=== PATIENT | male | born 1960 | race African-American/Black ===

== ENCOUNTER → 2020-05-12 | Outpatient (CLI) | payer OTHER ==
[~2020-05-12] MED LIST: ADAL40PE SQ; AMLO5TAB10 PO; ASPI325T11 PO; HYDR-2763 PO; PROM25TA10 PO
--- NOTE | 2020-05-12 14:42 | KCIC ---
EXAMINATION: MRI left knee without contrast INDICATIONS: Left knee pain. Progressive left medial knee pain from repetitive bending. Chronic.. TECHNIQUE: Multiplanar multisequence MRI of the left knee radiograph 10/08/2020 knee was obtained without contrast. COMPARISON: None. FINDINGS: MENISCI: There is a complex radial oblique tear at the posterior horn medial meniscus extending to the posterior horn-root junction with a radial and vertical component resulting in a nondisplaced flap. There is a peripheral horizontal tear along the undersurface of the body-posterior horn junction medial meniscus with some displaced meniscal tissue extending into the adjacent inferior recess (image 11, series 9). There is 2.5 mm extrusion of the medial meniscus body. The lateral meniscus is intact. LIGAMENTS: The anterior and posterior cruciate ligaments are intact. The medial collateral ligament and lateral collateral ligament complex including popliteus tendon and iliotibial band are intact. EXTENSOR MECHANISM: Mild thickening of the proximal patellar tendon consistent with tendinopathy. Quadriceps tendon is intact. Retinacula are intact. Mild edema in the suprapatellar fat pad, nonspecific. BONES AND CARTILAGE: Marrow signal is normal. No acute fracture. There is scattered superficial partial-thickness cartilage loss in the weightbearing medial compartment. Probable diffuse cartilage thinning in the lateral compartment without discrete defect. Patellofemoral cartilage appears maintained. OTHER: Moderate joint effusion. Mild subcutaneous edema along the medial aspect of the knee is reactive to meniscal tear. Muscles are normal. No Dutton cyst. IMPRESSION: 1. Radial oblique tear of the posterior horn-root junction medial meniscus with a nondisplaced flap, and peripheral horizontal undersurface tear at the body-posterior horn junction medial meniscus. 2. Mild medial and lateral compartment cartilage loss. 3. Moderate joint effusion. 4. Thickening of the proximal patellar tendon suspicious for tendinopathy. Electronically signed by: Maria C Duke MD (05/12/2020 2:39 PM) [id number]
== END | disposition home or self-care (01) ==
LOC: KCIC MRI 12:59
PROVIDERS: ATTEND Orthopaedic Surgery
DX: S83.242A Other tear of medial meniscus, current injury, left knee, initial encounter (principal); M79.4 Hypertrophy of (infrapatellar) fat pad; M25.462 Effusion, left knee; X58.XXXA Exposure to other specified factors, initial encounter; Y93.89 Activity, other specified; Y92.89 Other specified places as the place of occurrence of the external cause; Y99.8 Other external cause status
CPT/HCPCS: 73721

== ENCOUNTER → 2020-06-28 | Outpatient (CLI) | payer OTHER | END | disposition home or self-care (01) | LOC: LAB 13:48 | PROVIDERS: ATTEND Orthopaedic Surgery | DX: Z01.818 Encounter for other preprocedural examination (principal); Z11.59 Encounter for screening for other viral diseases; Z96.652 Presence of left artificial knee joint | CPT/HCPCS: U0003-CS ==

== ENCOUNTER 2020-07-02 07:52 | Day surgery (SDC) | payer OTHER ==
[~2020-07-02] VITALS: Ht 177.8 cm; Wt 130.2 kg
[~2020-07-02 07:52] MED LIST changes: -ADAL40PE SQ; -AMLO5TAB10 PO; -ASPI325T11 PO; +BUPIVACAINE MPF 0.25% 30 ML VIAL. ONE; +CLINDAMYCIN 900MG PREMIX 50 ML IV PRN; +EPINEPHrine VIAL 30 MG/30 ML VIAL ONE; -HYDR-2763 PO; +HYDROmorphone 2 MG/ML VIAL IV PRN; +IV RINGERS,LACTATED 1000ML 1,000 ML IV SCH; +LIDOCAINE 1% PF 2 ML VIAL. ID PRN; +LIDOCAINE 2% PF 5 ML VIAL. ONE; +MORPHINE SULFATE 2 MG/ML VIAL. IV PRN; +ONDANSETRON PF 4 MG/2 ML VIAL. IV PRN; +PROCHLORPERAZINE 10 MG/2 ML VIAL. IV PRN; -PROM25TA10 PO; +PROPOFOL 10 MG/ML (20ML) VIAL. IV ONE; +fentaNYL PF VIAL 100 MCG/2 ML VIAL IV PRN; +fentaNYL PF VIAL 250 MCG/5 ML VIAL ONE
[2020-07-02] MEDS ORDERED: CLINDAMYCIN 900MG PREMIX 50 ML IV PRN (08:30)
[2020-07-02] MEDS ORDERED: ADAL40PE SQ (08:32)
[2020-07-02] MEDS ORDERED: AMLO5TAB10 PO (08:32)
--- NOTE | 2020-07-02 08:50 | PDOC1 ---
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 History of right knee arthroscopy. He describes medial left knee pain over the past 2-3 months with associated popping feeling. He has more difficulty going up stairs. He is originally from [place] and has seen Dr. Wang at [facility] where he had his knee aspirated. His MRI shows a large medial meniscus tear of the left knee. He is here today for elective knee replacement surgery. Past Medical History Cardiovascular: HTN (Your exam) Rheumatologic: Rheumatoid arthritis Past Surgical History Past Surgical History right knee arthroscopy bone spur removal Family History Family History: No Significant Social History Smoke: Quit ALCOHOL: occassional Current Medications Current Medications Current Medications Clindamycin Phosphate 50 ml @ 100 mls/hr 1X PREOP PRN IV PRIOR TO PROCEDURE; Start 07/02/20 at 06:00; Stop 07/02/20 at 18:00; Status Cancel Ondansetron HCl (Zofran) 4 mg PRN Q6HRS PRN IV NAUSEA/VOMITING; Start 07/02/20 at 07:00; Stop 07/03/20 at 06:59 Fentanyl Citrate (Fentanyl 2ml Vial) 25 mcg PRN Q5MIN PRN IV MILD PAIN 1-3; Start 07/02/20 at 07:00; Stop 07/03/20 at 06:59 Fentanyl Citrate (Fentanyl 2ml Vial) 50 mcg PRN Q5MIN PRN IV MODERATE TO SEVERE PAIN; Start 07/02/20 at 07:00; Stop 07/03/20 at 06:59 Morphine Sulfate (Morphine Sulfate) 1 mg PRN Q10MIN PRN IV SEVERE PAIN 7-10; Start 07/02/20 at 07:00; Stop 07/03/20 at 06:59 Ringer's Solution 1,000 ml @ 30 mls/hr Q24H IV Last administered on 07/02/20at 08:38; Start 07/02/20 at 07:00; Stop 07/02/20 at 18:59 Lidocaine HCl (Xylocaine-Mpf 1% 2ml Vial) 2 ml PRN 1X PRN ID PRIOR TO IV START; Start 07/02/20 at 07:00; Stop 07/03/20 at 06:59 Hydromorphone HCl (Dilaudid) 0.5 mg PRN Q10MIN PRN IV SEV PAIN, Second choice; Start 07/02/20 at 07:00; Stop 07/03/20 at 06:59 Prochlorperazine Edisylate (Compazine) 5 mg PACU PRN PRN IV NAUSEA, MRX1; Start 07/02/20 at 07:00; Stop 07/03/20 at 06:59 Epinephrine HCl (Adrenalin) 30 mg STK-MED ONCE .ROUTE ; Start 07/02/20 at 07:12; Stop 07/02/20 at 07:12; Status DC Bupivacaine HCl (Sensorcaine Mpf 0.25%) 30 ml STK-MED ONCE .ROUTE ; Start 07/02/20 at 07:12; Stop 07/02/20 at 07:12; Status DC Bupivacaine HCl (Sensorcaine Mpf 0.25%) 30 ml STK-MED ONCE .ROUTE ; Start 07/02/20 at 07:12; Stop 07/02/20 at 07:13; Status DC Propofol (Diprivan) 200 mg STK-MED ONCE IV ; Start 07/02/20 at 07:50; Stop 07/02/20 at 07:50; Status DC Lidocaine HCl (Lidocaine Pf 2% Vial) 5 ml STK-MED ONCE .ROUTE ; Start 07/02/20 at 07:50; Stop 07/02/20 at 07:50; Status DC Fentanyl Citrate (Fentanyl 5ml Vial) 250 mcg STK-MED ONCE .ROUTE ; Start 07/02/20 at 07:50; Stop 07/02/20 at 07:50; Status DC Clindamycin Phosphate 50 ml @ 100 mls/hr 1X PREOP PRN IV PRIOR TO PROCEDURE; Start 07/02/20 at 08:30; Stop 07/02/20 at 14:29 Active Scripts Active Reported Humira (Adalimumab) 40 Mg/0.8 Ml Pen.ij.kit 1 Syr SQ Q2WKS Amlodipine Besylate 5 Mg Tablet 5 Mg PO DAILY Allergies Allergies: Coded Allergies: Penicillins (Verified Allergy, Intermediate, 07/02/20) ibuprofen (Verified Allergy, Unknown, 07/02/20) ROS Review of System OPHTHALMOLOGY: Blurred vision none. Double vision denies. Change in vision none. ENT: Hearing loss none. Change in voice denies. Rhinorrhea none. CARDIOLOGY: Palpitations none. Shortness of breath denies. Chest pain denies. CONSTITUTIONAL: Fever denies. Chills denies. Weight gain denies. Weakness none. weight loss denies. Fatigue none. GASTROENTEROLOGY: Diarrhea denies. Vomiting none. Dysphagia none. UROLOGY: Voiding normally yes. Hematuria none. MUSCULOSKELETAL: Chronic back or neck pain denies. Swelling of the feet, hands, ankles and /or legs denies. Joint pain reports. Tingling/numbness no. DERMATOLOGY: Rash denies. Lumps none. NEUROLOGY: Dizziness/lightheadedness denies. Double vision, temporary blindness denies. Tingling/numbness none. PSYCHOLOGY: Change in mood or personality denies. Memory loss none. ENDOCRINOLOGY: Obesity denies. Fatigue none. Weight loss none. HEMATOLOGY/LYMPH: Hepatitis denies. Enlarged lymph nodes denies. Physical Exam General: Alert, Cooperative HEENT: Atraumatic Lungs: Normal air movement Heart: RRR Abdomen: Soft Extremities: Other (The LEFT knee shows normal alignment, no masses and small- moderate effusion. There is tenderness at the medial joint line and a positive medial Enzo's test. The lateral joint line shows no tenderness. Range of motion is 0-100 degrees. There is trace patellofemoral crepitus. Enzo's test is positive. There is medial joint line pain with deep flexion and especially with rotation of the tibia. The knee is stable to varus and valgus stress without subluxation or laxity. The ACL feels intact on Megan testing. Muscle strength is normal (5/5) for quadriceps and hamstrings, and muscle tone is normal. The skin is normal with no scars, rashes, lesions or ulcers. Light touch sensation is intact. No edema and no varicosities. Dorsalis pedis pulse is intact and capillary refill is normal) Skin: No breakdown, No significant lesion Neuro: Normal speech, Normal tone, Sensation intact Vitals Vitals Vital Signs Date Time Temp Pulse Resp B/P (MAP) Pulse Ox O2 Delivery O2 Flow Rate FiO2 07/02/20 08:35 97.9 75 20 96 97.9 07/02/20 08:18 160/101 Room Air Images Images [facility] [address] [place] [address] IMAGING REPORT Signed PATIENT: NATHANIEL MIRANDA ACCOUNT: [id number] : 04/18/1964 LOCATION: [facility] AGE: 56 SEX: M EXAM STATUS: REG CLI ORD. PHYSICIAN: SHARAD JUNE MD REASON: left knee pain, no known injury PROCEDURE: KNEE STANDING BILAT AP Examination: 1. Bilateral knees AP view. 2. Left knee sunrise and lateral views INDICATION: Left knee pain. FINDINGS: The AP standing bilateral views of the knees show mild right knee joint space narrowing and osteophytic spurring. The left knee on this examination is unremarkable. The lateral and sunrise views of the left knee are unremarkable. IMPRESSION: Mild medial right knee degenerative change. Otherwise negative studies with no acute findings in the left knee to explain left knee pain on x-ray. Electronically signed by: Arden Seay MD (04/29/2020 3:51 PM) [id number] DICTATED and SIGNED BY: ARDEN SEAY MD DATE: 04/29/20 1551 [facility] [id number] [place] [id number] IMAGING REPORT Signed PATIENT: NATHANIEL MIRANDA ACCOUNT: [id number] : 1960 LOCATION: [facility] AGE: 60 SEX: M EXAM STATUS: REG CLI ORD. PHYSICIAN: SHARAD JUNE MD REASON: LEFT KNEE PAIN PROCEDURE: LOWER EXT JOINT WO LT EXAMINATION: MRI left knee without contrast INDICATIONS: Left knee pain. Progressive left medial knee pain from repetitive bending. Chronic.. TECHNIQUE: Multiplanar multisequence MRI of the left knee radiograph 10/08/2020 knee was obtained without contrast. COMPARISON: None. FINDINGS: MENISCI: There is a complex radial oblique tear at the posterior horn medial meniscus extending to the posterior horn-root junction with a radial and vertical component resulting in a nondisplaced flap. There is a peripheral horizontal tear along the undersurface of the body-posterior horn junction medial meniscus with some displaced meniscal tissue extending into the adjacent inferior recess (image 11, series 9). There is 2.5 mm extrusion of the medial meniscus body. The lateral meniscus is intact. LIGAMENTS: The anterior and posterior cruciate ligaments are intact. The medial collateral ligament and lateral collateral ligament complex including popliteus tendon and iliotibial band are intact. EXTENSOR MECHANISM: Mild thickening of the proximal patellar tendon consistent with tendinopathy. Quadriceps tendon is intact. Retinacula are intact. Mild edema in the suprapatellar fat pad, nonspecific. BONES AND CARTILAGE: Marrow signal is normal. No acute fracture. There is scattered superficial partial-thickness cartilage loss in the weightbearing medial compartment. Probable diffuse cartilage thinning in the lateral compartment without discrete defect. Patellofemoral cartilage appears maintained. OTHER: Moderate joint effusion. Mild subcutaneous edema along the medial aspect of the knee is reactive to meniscal tear. Muscles are normal. No Dutton cyst. IMPRESSION: 1. Radial oblique tear of the posterior horn-root junction medial meniscus with a nondisplaced flap, and peripheral horizontal undersurface tear at the body-posterior horn junction medial meniscus. 2. Mild medial and lateral compartment cartilage loss. 3. Moderate joint effusion. 4. Thickening of the proximal patellar tendon suspicious for tendinopathy. Electronically signed by: Maria C Duke MD (05/12/2020 2:39 PM) [id number] DICTATED and SIGNED BY: MARIA C DUKE MD DATE: 05/12/20 1439 VTE Prophylaxis Ordered VTE Prophylaxis Devices: Yes VTE Pharmacological Prophylaxi: Yes Assessment/Plan Assessment/Plan His MRI shows a meniscus tear of his left knee, correlated with his described symptoms and positive Enzo's test. We reviewed the imaging results together and discussed the natural history of the condition as well as a variety of treatment options, nonoperative vs operative. At this point I recommended surgery via knee arthroscopy and meniscectomy. We discussed the potential risks of arthroscopic surgery, including risks of bleeding, infection, progressive arthritis, blood clots, or other potential surgical or anesthetic complications. We also discussed postoperative treatment and expectations including DVT prophylaxis. All of his questions were answered and he desires to proceed with surgery. He is here today for elective left knee arthroscopy and meniscectomy. Justicifation of Admission Dx: Justifications for Admission: Justification of Admission Dx: N/A SHARAD JUNE MD Jul 02, 2020 08:50
[2020-07-02] MEDS ORDERED: DEXAMETHASONE SOD PHOS 4 MG/ML VIAL ONE (09:09)
[2020-07-02] MEDS ORDERED: ONDANSETRON PF 4 MG/2 ML VIAL. ONE (09:09)
[2020-07-02] MEDS ORDERED: SEVOFLURANE 61 TO 120 MINUTES. IH ONE (09:20)
--- NOTE | 2020-07-02 09:49 | PDOC4 ---
Operative Note Operative Note Date of Procedure: July 02, 2020 Preoperative Diagnosis: left knee medial meniscus tear Postoperative Diagnosis: complex tear of medial meniscus, current injury, left knee, initial encounter S83.232A Procedures Performed: left knee arthroscopy, surgical, with meniscectomy, MEDIAL, including meniscal shaving, including debridement/shaving of articular cartilage (chondroplasty) CPT 85845 Surgeon: Sharad Loera MD Cardiac Cath Rn: KATIANA Goyal Anesthesia: General Estimated Blood Loss: 5 mL Specimens: none Drains: none Complications: none Tourniquet time: 23 minutes at 300 mm Hg Indications for Procedure: The patient is a 60-year-old with left knee pain, unrelieved with nonoperative treatment. Exam and MRI are consistent with a meniscus tear. We talked about the risks and benefits of proceeding with an arthroscopic procedure. We talked about potential risks of ongoing pain, progressive arthritis, bleeding, infection, blood clots, or other potential surgical or anesthetic complications. All of the patient's questions about surgery were answered and they desired to proceed. Written consent was obtained. Description of Operation: The patient was identified in the preoperative holding area. The correct left knee was marked by me. The patient was taken to the operating room, where a general anesthetic was used. Preoperative antibiotics were given intravenously. A time-out procedure was performed. A tourniquet was placed on the upper thigh. Local anesthetic 20 mL of 0.25% bupivacaine was injected using sterile technique into the knee joint. The limb was prepared circumferentially with ChloraPrep solution and sterile waterproof arthroscopy drapes were applied. The limb was exsanguinated with an Esmarch bandage and the tourniquet was inflated. Lateral and medial arthroscopy portals were established. The medial meniscus showed a complex unrepairable tear with unstable flaps. A meniscectomy was performed with basket forceps and the motorized shaver back to a smooth stable base, and the resection tapered into the middle one-third of the meniscus.The medial tibiofemoral joint showed chondromalacia Outerbridge grade II, so a shaving chondroplasty was performed removing loose unstable fragments of articular cartilage.The intercondylar notch was free of loose bodies, and the ACL was intact. The lateral tibiofemoral joint showed a normal lateral meniscus, so no lateral meniscectomy was required.The lateral articular surfaces showed normal articular surfaces so no chondroplasty was required. The patellofemoral joint showed chondromalacia Outerbridge grade II, so a shaving chondroplasty was performed removing loose unstable fragments of articular cartilage. The suprapatellar pouch, medial and lateral gutters were free of loose bodies. Copious irrigation was used to drain all meniscal and chondral fragments, and the knee was drained of fluid. The portals were closed with #3-0 Prolene interrupted sutures. Additional local anesthetic, 30 mL of 0.25% bupivacaine with epinephrine was injected. A bulky sterile dressing was applied and the tourniquet was released. Needle and sponge counts were correct and there were no apparent complications. SHARAD LOERA MD Jul 02, 2020 09:49
[2020-07-02] MEDS ORDERED: HYDR-2763 PO (10:38)
[2020-07-02] MEDS ORDERED: ASPI325T11 PO (10:41)
[2020-07-02] MEDS ORDERED: PROM25TA10 PO (10:42)
[2020-07-02] MEDS ORDERED: HYDROcodone/APAP 7.5/325MG 1 TAB TABLET PO ONE ×2 (11:00)
[2020-07-02 11:09] VITALS: BP 136/83
== END 2020-07-02 13:23 | disposition home or self-care (01) ==
LOC: SURG 07:52
PROVIDERS: ATTEND Orthopaedic Surgery
DX: S83.232A Complex tear of medial meniscus, current injury, left knee, initial encounter (principal); I10 Essential (primary) hypertension; M19.90 Unspecified osteoarthritis, unspecified site; Z88.0 Allergy status to penicillin; Z88.8 Allergy status to other drugs, medicaments and biological substances; Z79.82 Long term (current) use of aspirin; Z79.899 Other long term (current) drug therapy; X58.XXXA Exposure to other specified factors, initial encounter; Y93.89 Activity, other specified; Y92.89 Other specified places as the place of occurrence of the external cause; Y99.8 Other external cause status
CPT/HCPCS: 29881; A7015; J0171; J1100; J2405; J2704; J3010; J3490